=== PATIENT | female | born 1965 | race Caucasian/White ===

== ENCOUNTER 2017-12-10 02:24 | Emergency (ER) | payer OTHER | END 2017-12-10 04:38 | disposition home or self-care (01) | LOC: FTE 02:24 | DX: S60.221A Contusion of right hand, initial encounter (principal); H10.023 Other mucopurulent conjunctivitis, bilateral; S80.01XA Contusion of right knee, initial encounter; S80.02XA Contusion of left knee, initial encounter; S60.222A Contusion of left hand, initial encounter; F17.210 Nicotine dependence, cigarettes, uncomplicated; W18.39XA Other fall on same level, initial encounter; Y92.9 Unspecified place or not applicable | CPT/HCPCS: 73562; 99284-25 ==

== ENCOUNTER 2018-01-24 12:31 | Emergency (ER) | payer OTHER | END 2018-01-24 14:59 | disposition home or self-care (01) | LOC: FTE 12:31 | DX: H10.9 Unspecified conjunctivitis (principal); F17.210 Nicotine dependence, cigarettes, uncomplicated; T14.90XA Injury, unspecified, initial encounter; W54.0XXA Bitten by dog, initial encounter; Y92.89 Other specified places as the place of occurrence of the external cause; Z85.828 Personal history of other malignant neoplasm of skin; Z85.850 Personal history of malignant neoplasm of thyroid | CPT/HCPCS: 99284; Z7502 ==

== ENCOUNTER 2018-02-26 22:34 | Emergency (ER) | payer OTHER ==
[2018-02-27 02:38] LABS: MODE ROOM AIR; MetHgb Venous 0.7 %; Sample Type Blood venous; Site VENOUS LINE; Venous COHb 0.3 %; Venous Fraction OxyHgb 23.7 %; Venous Oxygen Sat 23.9 mmHG (55.0-75.0); Venous Total Hemglobin 9.6 g/dl
[2018-02-27 03:00] LABS: ADD MAN DIFF? NO
[2018-02-27 03:02] LABS: WHITE BLOOD COUNT 3.8 10^3/ul (4.8-10.8)
[2018-02-27 03:02] LABS: BASOPHIL # 0.1 10^3/ul (0.0-0.1); BASOPHILS % 1.3 % (0.0-2.0); EOSINOPHILS # 0.1 10^3/ul (0.0-0.5); EOSINOPHILS % 2.7 % (0.0-7.0); HEMATOCRIT 30.6 % (37.0-47.0); HEMOGLOBIN 9.1 g/dl (12.0-16.0); LYMPHOCYTES # 1.7 10^3/ul (0.8-2.9); LYMPHOCYTES % 44.6 % (15.0-51.0); MEAN CORPUSCULAR HEMOGLOBIN 23.7 pg (29.0-33.0); MEAN CORPUSCULAR HGB CONC 29.7 g/dl (32.0-37.0); MEAN CORPUSCULAR VOLUME 79.7 fl (82.0-101.0); MEAN PLATELET VOLUME 9.3 fl (7.4-10.4); MONOCYTE # 0.3 10^3/ul (0.3-0.9); MONOCYTES % 7.2 % (0.0-11.0); NEUTROPHIL # 1.7 10^3/ul (1.6-7.5); NEUTROPHILS % 44.2 % (39.0-77.0); PLATELET COUNT 233 10^3/UL (140-415); RED BLOOD COUNT 3.84 10^6/ul (4.20-5.40)
[2018-02-27 03:24] LABS: LACTIC ACID 0.8 mmol/L (0.5-2.0)
[2018-02-27 03:25] LABS: INR 0.98; PROTIME 13.1 Sec (11.9-14.9)
[2018-02-27 03:26] LABS: ALANINE AMINOTRANSFERASE 86 IU/L (13-69); ALBUMIN 4.7 g/dl (3.3-4.9); ALKALINE PHOSPHATASE 60 IU/L (42-121); ANION GAP 12 (8-16); ASPARTATE AMINO TRANSFERASE 110 IU/L (15-46); BILIRUBIN,INDIRECT 0.3 mg/dl (0-1.1); BILIRUBIN,TOTAL 0.3 mg/dl (0.2-1.3); BLOOD UREA NITROGEN 16 mg/dl (7-20); CARBON DIOXIDE 28 mmol/L (21-31); CHLORIDE 103 mmol/L (97-110); CREATININE 1.34 mg/dl (0.44-1.00); GLUCOSE 78 mg/dl (70-220); POTASSIUM 3.8 mmol/L (3.5-5.1); SODIUM 139 mmol/L (135-144); TOTAL PROTEIN 8.3 g/dl (6.1-8.1)
[2018-02-27 03:37] LABS: B-TYPE NATRIURETIC PEPTIDE 81 PG/ML (0-125); TROPONIN-I 0.027 ng/ml (0.000-0.120)
== END 2018-02-27 06:27 | disposition home or self-care (01) ==
LOC: E/R 22:34
DX: D64.9 Anemia, unspecified (principal); I10 Essential (primary) hypertension; F17.210 Nicotine dependence, cigarettes, uncomplicated
CPT/HCPCS: 36415; 71045; 80053; 82803; 83605; 83880; 84484; 85025; 85610; 85730; 93005; 99285-25

== ENCOUNTER 2018-12-02 17:01 | Inpatient (IN) | payer OTHER ==
[2018-12-02 19:26] LABS: ABNORMAL IP MESSAGE 1; HEMATOCRIT 38.5 % (37.0-47.0); HEMOGLOBIN 11.6 g/dl (12.0-16.0); MEAN CORPUSCULAR HEMOGLOBIN 23.1 pg (29.0-33.0); MEAN CORPUSCULAR HGB CONC 30.1 g/dl (32.0-37.0); MEAN CORPUSCULAR VOLUME 76.7 fl (82.0-101.0); MEAN PLATELET VOLUME 9.4 fl (7.4-10.4); PLATELET COUNT 174 10^3/UL (140-415); RED BLOOD COUNT 5.02 10^6/ul (4.20-5.40); RED CELL DISTRIBUTION WIDTH 23.8 % (11.5-14.5)
[2018-12-02 19:26] LABS: WHITE BLOOD COUNT 7.8 10^3/ul (4.8-10.8)
[2018-12-02] MEDS: SOD CHLORIDE 0.9% 500 ML IV (19:27)
[2018-12-02 19:33] LABS: ADD MAN DIFF? YES; POSITIVE DIFF @See below
[2018-12-02 19:48] LABS: ADD UMIC YES; UR ASCORBIC ACID NEGATIVE (NEGATIVE); UR BACTERIA FEW /HPF (NONE SEEN); UR BILIRUBIN (Dip) NEGATIVE (NEGATIVE); UR BLOOD (Dip) 3+ mg/dL (NEGATIVE); UR CLARITY CLOUDY (CLEAR); UR COLOR YELLOW (YELLOW); UR GLUCOSE (Dip) NEGATIVE (NEGATIVE); UR KETONES (Dip) NEGATIVE (NEGATIVE); UR LEUKOCYTE ESTERASE (Dip) TRACE Leu/ul (NEGATIVE); UR MUCUS FEW /HPF (NONE SEEN); UR NITRITE (Dip) NEGATIVE (NEGATIVE); UR RBC 6 /HPF (0-5); UR SPECIFIC GRAVITY (Dip) 1.011 (1.003-1.030); UR SQUAMOUS EPITHELIAL CELL MANY /HPF (FEW); UR TOTAL PROTEIN (Dip) NEGATIVE (NEGATIVE); UR UROBILINOGEN (Dip) NEGATIVE (NEGATIVE); UR WBC 11 /HPF (0-5)
[2018-12-02 19:49] LABS: ALANINE AMINOTRANSFERASE 98 IU/L (13-69); ALBUMIN 3.1 g/dl (3.3-4.9); ALBUMIN/GLOBULIN RATIO 0.96; ALKALINE PHOSPHATASE 74 IU/L (42-121); ANION GAP 7 (5-13); ASPARTATE AMINO TRANSFERASE 57 IU/L (15-46); BILIRUBIN,INDIRECT 0.3 mg/dl (0-1.1); BILIRUBIN,TOTAL 0.3 mg/dl (0.2-1.3); BLOOD UREA NITROGEN 9 mg/dl (7-20); CALCIUM 7.9 mg/dl (8.4-10.2); CARBON DIOXIDE 26 mmol/L (21-31); CHLORIDE 107 mmol/L (97-110); CREATININE 0.71 mg/dl (0.44-1.00); Estimated GFR > 60 mL/min (>60); GLUCOSE 82 mg/dl (70-220); LIPASE 1914 U/L (23-300); POTASSIUM 4.5 mmol/L (3.5-5.1); SODIUM 140 mmol/L (135-144); TOTAL PROTEIN 6.3 g/dl (6.1-8.1)
[2018-12-02] MEDS ORDERED: ACETAMINOPHEN 325 MG TAB PO (21:30)
[2018-12-02 21:55] LABS: BAND NEUTROPHILS #M 0.1 10^3/ul (0.0-0.6); BAND NEUTROPHILS % (M) 2 % (0-4); EOSINOPHILS # 0.2 10^3/ul (0.0-0.5); EOSINOPHILS % (M) 2 % (0.0-7.0); LYMPHOCYTES # 1.5 10^3/ul (0.8-2.9); LYMPHOCYTES #M 1.4 10^3/ul (0.8-2.9); LYMPHOCYTES % (M) 19 % (15-51); MONOCYTE # 0.6 10^3/ul (0.3-0.9); MONOCYTE #M 0.6 10^3/ul (0.3-0.9); MONOCYTES % (M) 8 % (0-11); SEG NEUT #M 5.4 10^3/ul (1.7-7.5); SEGMENTED NEUTROPHILS (M) % 69 % (39-77)
[2018-12-02 21:57] LABS: BURR CELLS 2+; OVALOCYTES 2+ (0-0)
[2018-12-02] MEDS: ONDANSETRON 4 MG INJ IV (21:57)
[2018-12-02] MEDS: morphine 2 MG INJ IV (21:57)
[2018-12-02] MEDS ORDERED: ONDANSETRON 4 MG INJ IV (22:00)
[2018-12-02] MEDS: DEXTROSE 5%-0.45% NACL 1,000 ML IV (22:27)
[2018-12-03] MEDS: LORAZEPAM 2 MG INJ IV ×2 (00:01→07:16)
[2018-12-03] MEDS: morphine 4 MG/ML VIAL IV (05:29)
[2018-12-03 06:38] LABS: LIPASE 1101 U/L (23-300)
[2018-12-03] MEDS: DEXTROSE 5%-0.45% NACL 1,000 ML IV (08:06)
[2018-12-03] MEDS: ASPIRIN (EC) 81 MG TAB PO (12:10)
== END 2018-12-03 13:00 | disposition left against medical advice (07) | DRG 440 ==
LOC: FTE 17:01 → 5EC 12-03 11:24 → 6WM 18:58
DX: K85.90 Acute pancreatitis without necrosis or infection, unspecified (principal); F15.90 Other stimulant use, unspecified, uncomplicated; Z87.891 Personal history of nicotine dependence; Z86.73 Personal history of transient ischemic attack (TIA), and cerebral infarction without residual deficits; F41.9 Anxiety disorder, unspecified
CPT/HCPCS: 36415; 74176; 80053; 81001; 83690; 85025; 93880; 96360; 96361; 99285-25

== ENCOUNTER 2018-12-03 20:09 | Emergency (ER) | payer OTHER ==
[2018-12-04] MEDS: LORAZEPAM 2 MG INJ IM (00:39)
[2018-12-04] MEDS: DIPHENHYDRAMINE 50 MG INJ IM (00:39)
[2018-12-04] MEDS: HALOPERIDOL 5 MG INJ IM (00:39)
[2018-12-04 02:47] LABS: ADD MAN DIFF? NO
[2018-12-04 02:53] LABS: ABNORMAL IP MESSAGE 1; BASOPHILS % 0.3 % (0.0-2.0); EOSINOPHILS # 0.1 10^3/ul (0.0-0.5); EOSINOPHILS % 1.5 % (0.0-7.0); HEMATOCRIT 35.2 % (37.0-47.0); HEMOGLOBIN 10.7 g/dl (12.0-16.0); LYMPHOCYTES # 1.4 10^3/ul (0.8-2.9); LYMPHOCYTES % 19.6 % (15.0-51.0); MEAN CORPUSCULAR HEMOGLOBIN 23.3 pg (29.0-33.0); MEAN CORPUSCULAR HGB CONC 30.4 g/dl (32.0-37.0); MEAN CORPUSCULAR VOLUME 76.7 fl (82.0-101.0); MEAN PLATELET VOLUME 9.2 fl (7.4-10.4); MONOCYTE # 0.5 10^3/ul (0.3-0.9); MONOCYTES % 6.5 % (0.0-11.0); NEUTROPHIL # 5.2 10^3/ul (1.6-7.5); NEUTROPHILS % 71.5 % (39.0-77.0); PLATELET COUNT 208 10^3/UL (140-415); RED BLOOD COUNT 4.59 10^6/ul (4.20-5.40); RED CELL DISTRIBUTION WIDTH 23.9 % (11.5-14.5)
[2018-12-04 02:53] LABS: WHITE BLOOD COUNT 7.2 10^3/ul (4.8-10.8)
[2018-12-04 02:56] LABS: POSITIVE DIFF @See below
[2018-12-04 03:13] LABS: ALANINE AMINOTRANSFERASE 71 IU/L (13-69); ALBUMIN 2.9 g/dl (3.3-4.9); ALBUMIN/GLOBULIN RATIO 0.96; ALKALINE PHOSPHATASE 68 IU/L (42-121); ANION GAP 5 (5-13); ASPARTATE AMINO TRANSFERASE 39 IU/L (15-46); BILIRUBIN,INDIRECT 0.3 mg/dl (0-1.1); BILIRUBIN,TOTAL 0.3 mg/dl (0.2-1.3); BLOOD UREA NITROGEN 6 mg/dl (7-20); CALCIUM 7.8 mg/dl (8.4-10.2); CARBON DIOXIDE 27 mmol/L (21-31); CHLORIDE 110 mmol/L (97-110); CREATININE 0.58 mg/dl (0.44-1.00); Estimated GFR > 60 mL/min (>60); GLUCOSE 59 mg/dl (70-220); POTASSIUM 3.6 mmol/L (3.5-5.1); SODIUM 142 mmol/L (135-144); TOTAL PROTEIN 5.9 g/dl (6.1-8.1)
[2018-12-04 03:16] LABS: ACETAMINOPHEN < 10.0 ug/ml (10.0-30.0); ETHANOL < 10.0 mg/dl (0-0); SALICYLATE < 1.0 mg/dl (5.0-30.0)
== END 2018-12-04 15:15 | disposition home or self-care (01) ==
LOC: E/R 20:09
DX: F29 Unspecified psychosis not due to a substance or known physiological condition (principal); R40.2142 Coma scale, eyes open, spontaneous, at arrival to emergency department; R40.2242 Coma scale, best verbal response, confused conversation, at arrival to emergency department; R40.2362 Coma scale, best motor response, obeys commands, at arrival to emergency department; I10 Essential (primary) hypertension; F17.210 Nicotine dependence, cigarettes, uncomplicated
CPT/HCPCS: 36415; 80053; 80307; 85025; 96372; 99284-25

== ENCOUNTER 2018-12-05 12:32 | Emergency (ER) | payer OTHER | END 2018-12-05 16:30 | disposition home or self-care (01) | LOC: E/R 12:32 | DX: R51 Headache (principal); I10 Essential (primary) hypertension; F17.210 Nicotine dependence, cigarettes, uncomplicated; Z86.73 Personal history of transient ischemic attack (TIA), and cerebral infarction without residual deficits; Z85.850 Personal history of malignant neoplasm of thyroid | CPT/HCPCS: 99283; Z7502 ==